=== PATIENT | male | born 1935 | race Hispanic/Latino ===

== ENCOUNTER → 2023-03-18 | Outpatient (CLI) | payer OTHER ==
[~2023-03-18] MED LIST: APIX5TAB PO; CHOL100046 PO; DILT180C47 PO; DRON400T7 PO; DUTA0.5C37 PO; LOSA100T59 PO; METF-444 PO; METF-446 PO; METO-391 PO; OMEP20CA12 PO; ROSU20TA73 PO; TAMS-1 PO; vitamin d PO
== END | disposition home or self-care (01) ==
LOC: LAB 14:11
PROVIDERS: ATTEND Internal Medicine Cardiovascular Disease
DX: I48.4 Atypical atrial flutter (principal); I50.9 Heart failure, unspecified
CPT/HCPCS: 36415; 83880

== ENCOUNTER 2023-05-04 06:44 | Day surgery (SDC) | payer OTHER ==
[2023-04-30 10:42] LABS: BASOPHILS # (AUTO) 0.06 K/uL (0.00-0.20); BASOPHILS % (AUTO) 0.8 % (0.0-5.0); EOSINOPHILS # (AUTO) 0.23 K/uL (0.00-0.70); HEMATOCRIT 41.1 % (42-54); IMMATURE GRANULOCYTE ABSOLUTE 0.09 K/uL (0-1); LYMPHOCYTES # (AUTO) 1.6 K/uL (1.0-4.8); LYMPHOCYTES % (AUTO) 20.7 % (21.0-51.0); MEAN CORPUSCULAR HEMOGLOBIN 30.3 pg (27.0-33.0); MEAN CORPUSCULAR HGB CONC 32.6 g/dL (32.0-36.0); MONOCYTES # (AUTO) 0.8 K/uL (0.1-1.0); MONOCYTES % (AUTO) 10.1 % (3.0-13.0); NEUTROPHILS # (AUTO) 4.9 K/uL (1.8-7.7); NEUTROPHILS % (AUTO) 64.2 % (40.0-77.0); PLATELET COUNT (AUTO) 174 K/uL (130-400); RED BLOOD CELL COUNT(AUTO) 4.42 MIL/uL (4.50-6.20); RED CELL DISTRIBUTION WIDTH 13.2 % (11.0-15.5); WHITE BLOOD COUNT (AUTO) 7.6 K/uL (4.8-10.8)
[2023-04-30 10:49] VITALS: BP 134/67; PULSE 68; RESP 18
[2023-04-30 10:57] LABS: INR 0.94 (0.85-1.15)
[2023-04-30 10:58] LABS: PARTIAL THROMBOPLASTIN TIME 32.1 SEC (26.3-35.5)
[2023-04-30 11:08] LABS: CREATININE 0.9 mg/dL (0.5-1.5); POTASSIUM 4.3 mmol/L (3.5-5.1)
[~2023-05-04] VITALS: Ht 172.7 cm; Wt 88.5 kg
[2023-05-04] VITALS (8 sets, daily range): BP systolic 107–140; BP diastolic 53–70; PULSE 67–87; RESP 12–18
[~2023-05-04 06:44] MED LIST changes: -CHOL100046 PO; -LOSA100T59 PO; +LOSA25TA41 PO; -METF-446 PO; -METO-391 PO; -ROSU20TA73 PO; +SIMV40TA59 PO; +VITAMIN D3 PO; -vitamin d PO
[2023-05-04] MEDS ORDERED: 0.9%NACL 1000ML 1,000 ML IV ONE (07:10)
[2023-05-04] MEDS ORDERED: LIDOCAINE HCL 400MG/20ML VIAL ONE (12:31)
[2023-05-04] MEDS ORDERED: HEPARIN 10,000 UNIT/10ML (1,000 UNIT/ML) VIAL ONE (12:31)
[2023-05-04] MEDS ORDERED: MIDAZOLAM HCL 1 MG/ML 2ML VIAL ONE ×2 (12:34→13:11)
[2023-05-04] MEDS ORDERED: MEPERIDINE-PF 25 MG/ML SYG ONE ×2 (12:34→13:11)
== END 2023-05-04 17:00 | disposition home or self-care (01) ==
LOC: DAH 06:44
PROVIDERS: ATTEND Internal Medicine Cardiovascular Disease
DX: I48.3 Typical atrial flutter (principal); I10 Essential (primary) hypertension; E11.9 Type 2 diabetes mellitus without complications; E78.5 Hyperlipidemia, unspecified; E66.9 Obesity, unspecified; J44.9 Chronic obstructive pulmonary disease, unspecified; Z79.01 Long term (current) use of anticoagulants; Z79.899 Other long term (current) drug therapy; Z88.0 Allergy status to penicillin; Z79.84 Long term (current) use of oral hypoglycemic drugs; Z87.891 Personal history of nicotine dependence; Z68.30 Body mass index [BMI] 30.0-30.9, adult
CPT/HCPCS: 80048; 85025; 85610; 85730; 36415; 93005; 93653; 82948 ×2; C1894 ×2; A4649 ×2; C1732; C1730; J3490; J7030; J1644 ×2; J2250 ×2; J2175 ×2; A4215; A4222; A4221; A4663; A4216; A4606; A4223 ×3; 99156; 99157